=== PATIENT | male | born 2000 | race Two or more races ===

== ENCOUNTER 2024-03-17 23:36 | Emergency (ER) | payer BC, OTHER ==
[~2024-03-17] VITALS: Ht 175.3 cm; Wt 99.0 kg
[2024-03-17 23:47] VITALS: BP 112/68; PULSE 98; RESP 16; O2SAT 100
== END 2024-03-18 03:18 | disposition left against medical advice (07) ==
LOC: ER 23:36
DX: R11.2 Nausea with vomiting, unspecified (principal); R10.9 Unspecified abdominal pain; Z53.21 Procedure and treatment not carried out due to patient leaving prior to being seen by health care provider